=== PATIENT | female | born 1980 | race Caucasian/White ===

== ENCOUNTER 2016-10-21 04:48 | Emergency (ER) | payer MEDICAID ==
[~2016-10-21] VITALS: Ht 160 cm; Wt 81.1 kg
[2016-10-21] MEDS ORDERED: PRENATAL VITS (05:02)
[2016-10-21] MEDS ORDERED: ONDANSETRON ODT 4 MG ONE (05:14)
[2016-10-21] MEDS ORDERED: ONDANSETRON ODT 4 MG PO ONE (05:30)
[2016-10-21] MEDS ORDERED: SODIUM CHLORIDE FLUSH 10ML SYR IVF ONE (05:30)
[2016-10-21] MEDS ORDERED: SODIUM CHLORIDE 0.9% 1,000ML IVBOLUS ONE (05:30)
[2016-10-21 05:50] LABS: ASPARTATE AMINO TRANSFERASE 15 U/L (15-37); BLOOD UREA NITROGEN 11 mg/dL (7-18)
[2016-10-21 06:06] VITALS: BP 114/74
== END 2016-10-21 07:54 | disposition home or self-care (01) ==
LOC: ED 06:31
DX: O34.81 Maternal care for other abnormalities of pelvic organs, first trimester (principal); R10.30 Lower abdominal pain, unspecified
CPT/HCPCS: 36415; 76801; 80053; 81003; 84702; 85025; 96360; 96361; 99285; J7030; Q0162